=== PATIENT | female | born 1975 | race Asian ===

== ENCOUNTER 2021-12-20 17:55 | Observation (INO) | payer OTHER, MEDICAID, SELFPAY ==
[2021-12-20 18:07] VITALS: BP 138/82; PULSE 88; RESP 18; TEMP 36.6; O2SAT 100
--- NOTE | 2021-12-20 18:09 | DI.RAD.S_ITS ---
PROCEDURE: XR CHEST 1V INDICATIONS: chest pain TECHNIQUE: One view of the chest was acquired. COMPARISON: None. FINDINGS: Surgical changes and devices: Postsurgical changes are partially visualized in the lower cervical spine. Lungs and pleura: Lungs are clear without acute consolidation. There is a nodular opacity compatible with a nipple shadow projecting over the left lung base. No pleural effusions or pneumothorax. Mediastinum: Mediastinal contours appear normal. Heart size is normal. Bones and chest wall: No suspicious bony lesions. Overlying soft tissues appear unremarkable. IMPRESSION: 1. No acute cardiopulmonary disease. Dictated by: Ganesh Gutierrez M.D. on 12/20/2021 at 18:46 Approved by: Ganesh Gutierrez M.D. on 12/20/2021 at 18:47
[2021-12-20 18:30] LABS: Add Manual Diff / Slide Review NO; Basophils Absolute Auto 100 /uL (0-100); Basophils Percent Auto 0.8 % (0-2); Eosinophils Absolute Auto 100 /uL (0-450); Eosinophils Percent Auto 1.1 % (2-4); Hematocrit 43.4 % (36-46); Hemoglobin 14.8 g/dL (12.0-16.0); Lymphocytes Absolute Auto 1200 /uL (1100-4500); Lymphocytes Percent Auto 16.2 % (25-40); Mean Corpuscular HGB Conc 34.2 % (30-36); Mean Corpuscular Hemoglobin 31.4 PG (26-34); Mean Corpuscular Volume 91.7 fL (80-100); Monocytes Absolute Auto 500 /uL (0-900); Monocytes Percent Auto 7.6 % (3-14); Neutrophils Absolute Auto 5300 /uL (1500-7000); Neutrophils Percent Auto 74.3 % (50-75); Platelet Count 289 X10^3/uL (150-400); Red Blood Cell Count 4.73 X10^6/uL (4.0-5.2); Red Cell Distribution Width 13.7 % (11.6-14.8); White Blood Cell Count 7.2 X10^3/uL (4.5-11.0)
[2021-12-20 18:36] LABS: Alanine Aminotransferase 11 IU/L (<35); Albumin 4.8 g/dL (3.5-5.0); Albumin Globulin Ratio 1.5 (1.0-2.8); Alkaline Phosphatase 46 U/L (38-126); Aspartate Aminotransferase 22 IU/L (14-36); BUN Creatinine Ratio 11.3 (6-22); Bilirubin Total 0.5 mg/dL (0.2-1.3); Blood Urea Nitrogen 14 mg/dL (7-17); Calcium 9.9 mg/dL (8.4-10.2); Carbon Dioxide 30 mmol/L (22-32); Chloride 104 mmol/L (98-107); Creatine Kinase 53 U/L (30-135); Estimated Glomerular Filt Rate 46.8 mL/min (>60); Globulin 3.1 g/dL (1.7-4.1); Glucose 153 mg/dL (70-100); HEMOLYSIS < 15 (0-50); Lipase 90 U/L (23-300); Magnesium 2.2 mg/dL (1.6-2.3); Potassium 3.8 mmol/L (3.4-5.1); Sodium 140 mmol/L (137-145); Total Protein 7.9 g/dL (6.3-8.2)
[2021-12-20 18:50] LABS: Troponin I < 0.012 ng/mL (0.01-0.034)
--- NOTE | 2021-12-20 19:49 | DI.CT.S_ITS ---
PROCEDURE: CT ANGIO CHEST PE PROTOCOL INDICATIONS: chest pain TECHNIQUE: After the administration of intravenous contrast, 2 mm thick sections acquired from the pulmonary apices to the posterior costophrenic angles. 3-dimensional maximum intensity projection (MIP) coronal and sagittal reformats were then acquired through the thorax. For radiation dose reduction, the following was used: automated exposure control, adjustment of mA and/or kV according to patient size. COMPARISON: None. FINDINGS: Image quality: Excellent. Pulmonary arteries: Pulmonary arteries are normal in size, and demonstrate no intraluminal filling defects to suggest central pulmonary embolism. Lungs and pleura: Lungs are clear. No pleural effusions or pneumothorax. Central and peripheral airways are patent. Mediastinum: Heart size is normal, without pericardial effusion. No mediastinal or hilar adenopathy. Thoracic aorta is normal in caliber and enhancement. Esophagus is normal in caliber, without hiatal hernia. Bones and chest wall: No suspicious bony lesions. Ribs and thoracic spine appear intact throughout. Thyroid gland uniform attenuation. No axillary or supraclavicular adenopathy. Abdomen: Visualized upper abdominal solid organs appear normal in the early arterial phase of enhancement. IMPRESSION: No acute finding in the chest. Dictated by: Colin Edward M.D. on 12/20/2021 at 21:17 Approved by: Colin Edward M.D. on 12/20/2021 at 21:19
--- NOTE | 2021-12-20 19:51 | DI.CT.S_ITS ---
PROCEDURE: CT ANGIO HEAD AND NECK INDICATIONS: Headache TECHNIQUE: Pre-contrast 4.5 mm thick sections acquired from the foramen magnum to the vertex. After the administration of intravenous contrast, 1 mm thick sections acquired from the aortic arch through the [place]. Post-contrast 4.5 mm thick sections then re-acquired from the foramen magnum to the vertex. 3-dimensional oihiudt-ikecswzwv-aomnmqsvkb (MIP) and/or volume rendering reformats were acquired of the central intracranial vasculature and neck separately. COMPARISON: None. FINDINGS: BRAIN: CSF spaces: Ventricles are normal in size and shape. Basal cisterns are patent. No extra-axial fluid collections. Brain: No midline shift. No intracranial bleeds or masses. Sanchez-white matter interface appears intact. Skull and face: Calvarium and facial bones appear intact, without suspicious lesions. Orbits appear normal. Sinuses: Sinuses and mastoids are clear. HEAD CT ANGIOGRAPHY: Anterior circulation: Intracranial internal carotid arteries are normal in size and flow. The flow within the paired anterior cerebral arteries is normal and symmetric. The flow within the middle cerebral arteries is normal and symmetric. The anterior communicating artery is seen. No aneurysms are seen. Posterior circulation: Visualized portions of the vertebral arteries demonstrate normal caliber, and join to form a normal appearing basilar artery. Flow within the posterior cerebral arteries is normal and symmetric. No aneurysms are seen. NECK CT ANGIOGRAPHY: Carotid system: The great vessels demonstrate a conventional anatomy as they arise from the aortic arch. The origins of the common carotid arteries appear patent. The common carotid arteries demonstrate normal caliber and courses. The bifurcation regions are both widely patent. The internal carotid arteries demonstrate normal calibers and courses. Posterior circulation: The origins of the vertebral arteries both appear widely patent. The more superior extracranial portions of both vertebral arteries also demonstrate normal courses and calibers. They join to form a normal appearing basilar artery. Soft tissues: Visualized neck soft tissues demonstrate no suspicious abnormalities. Bones: No suspicious bony lesions. Visualized cervical spine appears normally aligned. IMPRESSION: No acute intracranial abnormality. No intracranial aneurysm or vascular malformation. No hemodynamically significant stenosis of the major intracranial or extracranial arterial vasculature. Any quantitative measurements of stenosis were performed using NASCET criteria. Dictated by: Colin Edward M.D. on 12/20/2021 at 21:24 Approved by: Colin Edward M.D. on 12/20/2021 at 21:30
--- NOTE | 2021-12-20 19:51 | ED_ITS ---
HPI - Chest Pain General Chief Complaint: Chest Pain Stated Complaint: Massive Headache,SOB,Tingling Face,Pain Left Arm Time Seen by Provider: 12/20/21 18:48 Source: patient Mode of arrival: Ambulatory History of Present Illness HPI narrative: Patient here with multiple complaints. Patient complains of bilateral facial numbness. This started on December 10 of this year. On December 09 the day before, patient had dental procedure and had submental Novocain bilateral blocks at the dentist's office. She did not proceed with the procedure. She left the office. The next day she had bilateral facial numbness and continues have this numbness. Patient also complains of headache and substernal chest discomfort radiating to left arm. It is not reproducible. Family history of brain aneurysms. Patient does complain of headache as well. Currently no chest pain but does have left arm discomfort. No numbness or tingling weakness syncope or diaphoresis. No exertional chest pain. Denies any headache at this time. No back pain. No abdominal pain. Patient states she is going through a divorce, she filed for divorce but she states she is not stressed but is actually feeling better about filing for divorce. His eye had ongoing this chest pain since September last year. Has worsened with increased frequency. Father had quadruple bypass at age 4646 years old. Patient is not COVID vaccinated. She does smoke cigarettes. Related Data Home Medications Medication Instructions Recorded Confirmed aspirin 81 mg chewable tablet 81 mg PO DAILY 12/21/21 12/21/21 dolutegravir 50 mg tablet (Tivicay) 50 mg PO DAILY 12/21/21 12/21/21 emtricitabine 200 mg-tenofovir 1 tab PO DAILY 12/21/21 12/21/21 alafenamide fumarate 25 mg tablet (Descovy) Allergies Allergy/AdvReac Type Severity Reaction Status Date / Time Iodinated Contrast Media Allergy Verified 12/20/21 21:40 Review of Systems Review of Systems Narrative: GENERAL: Denies chills, fatigue, malaise, fever, sweats. HEENT: Denies sinus pain, ear pain, sore throat RESPIRATORY: Denies dyspnea, cough CARDIOVASCULAR: Positive for chest pain, palpitations GASTROINTESTINAL: Denies nausea, vomiting, abdominal pain : Denies dysuria, frequency, hematuria MUSCULOSKELETAL: denies muscle or bony pain SKIN: Denies rash, skin lesions NEUROLOGIC: Denies weakness, positive for facial numbness, positive for headache ROS Unobtainable: All systems reviewed & are unremarkable except as noted in HPI and below Patient History Family History (Updated 12/21/21 @ 01:46 by VICTOR M Swanson) Father Family history of CABG Mother Rheumatoid arthritis Social History household members: family Smoking Status: Current every day smoker alcohol intake: never Exam Narrative Exam Narrative: GENERAL: in no distress, not toxic not dyspneic HEAD: Normocephalic. EYES: Pupils equal round No scleral icterus. ENT: Mucous membranes moist. NECK: Trachea midline. CARDIOVASCULAR: Regular rate and rhythm without murmurs RESPIRATORY: Clear to auscultation. Breath sounds equal bilaterally. No wheezes, rales, or rhonchi. GASTROINTESTINAL: Abdomen soft, non-tender EXTREMITIES: No gross deformities. BACK: No flank tenderness. NEURO: AOx4. Clear speech no facial droop light touch intact to bilateral face hands with strong equal operations lead. Patient however complains of numbness to bilateral face. No facial droop. Steady self gait in hallway to the bathroom. No ataxia. SKIN: Warm and dry PSYCH: Not anxious, is cooperative Initial Vital Signs Initial Vital Signs: Vital Signs Temperature 97.9 F 12/20/21 18:07 Pulse Rate 88 12/20/21 18:07 Respiratory Rate 18 12/20/21 18:07 Blood Pressure 138/82 12/20/21 18:07 Pulse Oximetry 100 12/20/21 18:07 Course Course Course Narrative: No new issues during course stay other than allergic reaction to CT contrast dye. No respiratory complaints. Improving with Benadryl and Solu-Medrol Orders Ordered: ED Orders 12/20/21 18:09 XR chest 1V Stat EKG-12 Lead Stat 12/20/21 18:20 Complete Blood Count AUTO DIFF Stat Comprehensive Metabolic Panel Stat Lipase Stat Magnesium Stat Troponin & CK Cardiac Panel Stat 12/20/21 19:49 CT angio chest PE protocol Stat 12/20/21 19:51 CT angio head and neck Stat 12/20/21 19:55 Urine Drug Screen, Rapid Stat Acetaminophen (Acetaminophen 325 Mg Tablet) 650 mg PO Q6HR PRN PRN Reason: Fever/Mild Pain (1-3) Aspirin (Aspirin Ec 81 Mg Tablet) 81 mg PO DAILY [facility] Atorvastatin Calcium (Atorvastatin 20 Mg Tablet) 40 mg PO BEDTIME [facility] Enoxaparin Sodium (Enoxaparin 40 Mg/0.4 Ml Syringe) 40 mg SUBCUT DAILY [facility] Famotidine (Famotidine 20 Mg/2 Ml Vial) 20 mg IV NOW [facility] Last Admin: 12/20/21 21:06 Dose: 20 mg Documented by: JUJU Morphine Sulfate (Morphine 2 Mg/Ml Inj) 2 mg IV Q5MIN PRN PRN Reason: Chest Pain Naloxone HCl (Naloxone 0.4 Mg/Ml Vial) 0.2 mg IV Q2MIN PRN PRN Reason: Opiate Reversal Nicotine (Nicotine 14 Patch) 14 mg TOP DAILY [facility] Nitroglycerin (Nitroglycerin 0.4 Mg Sl Tab) 0.4 mg SL [id number] PRN PRN Reason: Chest Pain Ondansetron HCl (Ondansetron 4 Mg/2 Ml Inj) 4 mg IV Q8HR PRN PRN Reason: Nausea And Vomiting Discontinued Medications Diphenhydramine HCl (Diphenhydramine 50 Mg/Ml Vial) 25 mg IV NOW ONE Stop: 12/20/21 20:50 Last Admin: 12/20/21 20:53 Dose: 25 mg Documented by: JUJU Sodium Chloride (Normal Saline 0.9%) 500 mls @ 1,000 mls/hr IV BOLUS ONE Stop: 12/20/21 20:18 Last Admin: 12/20/21 21:03 Dose: Not Given Documented by: JUJU Sodium Chloride (Normal Saline 0.9%) 1,000 mls @ 1,000 mls/hr IV BOLUS ONE Stop: 12/20/21 21:48 Last Infusion: 12/20/21 22:09 Dose: 0 mls/hr Documented by: Admin: 12/20/21 20:53 Dose: 1,000 mls/hr Documented by: JUJU Methylprednisolone (Methylprednisolone 125 Mg/2 Ml Vial) 125 mg IV NOW ONE Stop: 12/20/21 20:50 Last Admin: 12/20/21 20:53 Dose: 125 mg Documented by: JUJU Nicotine (Nicotine 14 Patch) 14 mg TOP DAILY [facility] Reevaluation(s) Reevaluation #1: Reviewed results with patient. No chest pain at this time. Agrees for admit. No respiratory complaints after IV contrast. Only itching and periorbital edema which is improving. Time: 22:11 Consultations Consultation #1: Spoke with hospitalist, Demetria Sanchez, will admit patient Time: 22:20 Vital Signs Vital signs: Vital Signs - 8 hr 12/20/21 21:04 12/20/21 21:30 12/20/21 22:00 Pulse Rate 81 71 74 Blood Pressure 150/80 H 123/80 Pulse Oximetry 100 100 100 MDM - Chest Pain Differential Diagnosis Differential diagnosis: Likely stable angina, unstable angina pectoris, atypical chest pain, st elevation myocardial infarction and other (Aortic dissection/aneurysm/brain aneurysm/facial paresthesia secondary to iatrogenic/medication) Lab Data Result diagrams: 12/20/21 18:20 12/20/21 18:20 Labs: Lab Results 12/20/21 12/20/21 12/20/21 Range/Units 18:20 18:20 18:20 WBC 7.2 (4.5-11.0) X10^3/uL RBC 4.73 (4.0-5.2) X10^6/uL Hgb 14.8 (12.0-16.0) g/dL Hct 43.4 (36-46) % MCV 91.7 (80-100) fL MCH 31.4 (26-34) PG MCHC 34.2 (30-36) % RDW 13.7 (11.6-14.8) % Plt Count 289 (150-400) X10^3/uL Neut % (Auto) 74.3 (50-75) % Lymph % (Auto) 16.2 L (25-40) % [place] % (Auto) 7.6 (3-14) % Eos % (Auto) 1.1 L (2-4) % Baso % (Auto) 0.8 (0-2) % Neut # (Auto) 5300 (1985-7008) /uL Lymph # (Auto) 1200 (4623-5276) /uL [place]oving # (Auto) 500 (0-900) /uL Eos # (Auto) 100 (0-450) /uL Baso # (Auto) 100 (0-100) /uL Sodium 140 (137-145) mmol/L Potassium 3.8 (3.4-5.1) mmol/L Chloride 104 (98-107) mmol/L Carbon Dioxide 30 (22-32) mmol/L BUN 14 (7-17) mg/dL Creatinine 1.24 H (0.52-1.04) mg/dL Estimated GFR 46.8 L (>60) mL/min BUN/Creatinine Ratio 11.3 (6-22) Glucose 153 H (70-100) mg/dL Hemoglobin A1c 5.5 (4.0-6.0) % Calcium 9.9 (8.4-10.2) mg/dL Magnesium 2.2 (1.6-2.3) mg/dL Total Bilirubin 0.5 (0.2-1.3) mg/dL AST 22 (14-36) IU/L ALT 11 (<35) IU/L Alkaline Phosphatase 46 (38-126) U/L Total Creatine Kinase 53 (30-135) U/L CK-MB (CK-2) TNP CK-MB (CK-2) Rel Index TNP Troponin I < 0.012 (0.01-0.034) ng/mL Total Protein 7.9 (6.3-8.2) g/dL Albumin 4.8 (3.5-5.0) g/dL Globulin 3.1 (1.7-4.1) g/dL Albumin/Globulin Ratio 1.5 (1.0-2.8) Lipase 90 (23-300) U/L U Opiates 300ng/mL cut (Negative) Ur Oxycodone Screen (Negative) Urine Methadone Screen (Negative) Ur Barbiturates Screen (Negative) U Tricyclic Antidepress (Negative) Ur Phencyclidine Scrn (Negative) Ur Amphetamines Screen (Negative) U Methamphetamines Scrn (Negative) Ur MDMA Scrn (Ecstasy) (Negative) U Benzodiazepines Scrn (Negative) Urine Cocaine Screen (Negative) U Marijuana (THC) Screen (Negative) 12/20/21 Range/Units 19:55 WBC (4.5-11.0) X10^3/uL RBC (4.0-5.2) X10^6/uL Hgb (12.0-16.0) g/dL Hct (36-46) % MCV (80-100) fL MCH (26-34) PG MCHC (30-36) % RDW (11.6-14.8) % Plt Count (150-400) X10^3/uL Neut % (Auto) (50-75) % Lymph % (Auto) (25-40) % Loving % (Auto) (3-14) % Eos % (Auto) (2-4) % Baso % (Auto) (0-2) % Neut # (Auto) (6686-2060) /uL Lymph # (Auto) (7415-7694) /uL Loving # (Auto) (0-900) /uL Eos # (Auto) (0-450) /uL Baso # (Auto) (0-100) /uL Sodium (137-145) mmol/L Potassium (3.4-5.1) mmol/L Chloride (98-107) mmol/L Carbon Dioxide (22-32) mmol/L BUN (7-17) mg/dL Creatinine (0.52-1.04) mg/dL Estimated GFR (>60) mL/min BUN/Creatinine Ratio (6-22) Glucose (70-100) mg/dL Hemoglobin A1c (4.0-6.0) % Calcium (8.4-10.2) mg/dL Magnesium (1.6-2.3) mg/dL Total Bilirubin (0.2-1.3) mg/dL AST (14-36) IU/L ALT (<35) IU/L Alkaline Phosphatase (38-126) U/L Total Creatine Kinase (30-135) U/L CK-MB (CK-2) CK-MB (CK-2) Rel Index Troponin I (0.01-0.034) ng/mL Total Protein (6.3-8.2) g/dL Albumin (3.5-5.0) g/dL Globulin (1.7-4.1) g/dL Albumin/Globulin Ratio (1.0-2.8) Lipase (23-300) U/L U Opiates 300ng/mL cut Negative (Negative) Ur Oxycodone Screen Negative (Negative) Urine Methadone Screen Negative (Negative) Ur Barbiturates Screen Negative (Negative) U Tricyclic Antidepress Negative (Negative) Ur Phencyclidine Scrn Negative (Negative) Ur Amphetamines Screen Negative (Negative) U Methamphetamines Scrn Negative (Negative) Ur MDMA Scrn (Ecstasy) Negative (Negative) U Benzodiazepines Scrn Negative (Negative) Urine Cocaine Screen Negative (Negative) U Marijuana (THC) Screen Positive H (Negative) Imaging Data Chest x-ray: Radiologist's Impression: [address] [address] XRay Report Signed Patient: Rosangela Jonas MR#: [id number] : 1975 Acct:[id number] Age/Sex: 46 / F Date of Service: 12/20/21 Loc: ED Accession Number: [id number] ?? Procedure: XR chest 1V Ordering Provider: Bud Livingston MD PROCEDURE:? XR CHEST 1V ? INDICATIONS:? chest pain ? TECHNIQUE:? One view of the chest was acquired.? ? COMPARISON:? None. ? FINDINGS:? ? Surgical changes and devices:? Postsurgical changes are partially visualized in the lower cervical spine.? ? Lungs and pleura:? Lungs are clear without acute consolidation.? There is a nodular opacity compatible with a nipple shadow projecting over the left lung base.? No pleural effusions or pneumothorax.? ? Mediastinum:? Mediastinal contours appear normal.? Heart size is normal.? ? Bones and chest wall:? No suspicious bony lesions.? Overlying soft tissues appear unremarkable.? ? IMPRESSION:? ? 1.? No acute cardiopulmonary disease. ? ? ? Dictated by: Ganesh Gutierrez M.D. on 12/20/2021 at 18:46 ? ? Approved by: Ganesh Gutierrez M.D. on 12/20/2021 at 18:47 ? CT scan - chest: Radiologist's Impression: [address] [address] [address] Scan Report Signed Patient: Rosangela Jonas MR#: [id number] : 1975 Acct:[id number] Age/Sex: 46 / F Date of Service: 12/20/21 Loc: ED Accession Number: [id number] ?? Procedure: CT angio chest PE protocol Ordering Provider: Bud Livingston MD PROCEDURE:? CT ANGIO CHEST PE PROTOCOL ? INDICATIONS:? chest pain ? TECHNIQUE:? After the administration of intravenous contrast, 2 mm thick sections acquired from the pulmonary apices to the posterior costophrenic angles.? 3-dimensional maximum intensity projection (MIP) coronal and sagittal reformats were then acquired through the thorax.? For radiation dose reduction, the following was used:? automated exposure control, adjustment of mA and/or kV according to patient size.? ? COMPARISON:? None. ? FINDINGS:? Image quality:? Excellent.? ? Pulmonary arteries:? Pulmonary arteries are normal in size, and demonstrate no intraluminal filling defects to suggest central pulmonary embolism.? ? Lungs and pleura:? Lungs are clear.? No pleural effusions or pneumothorax.? Central and peripheral airways are patent.? ? Mediastinum:? Heart size is normal, without pericardial effusion.? No mediastinal or hilar adenopathy.? Thoracic aorta is normal in caliber and enhancement.? Esophagus is normal in caliber, without hiatal hernia.? ? Bones and chest wall:? No suspicious bony lesions.? Ribs and thoracic spine appear intact throughout.? Thyroid gland uniform attenuation.? No axillary or supraclavicular adenopathy.? ? Abdomen:? Visualized upper abdominal solid organs appear normal in the early arterial phase of enhancement.? ? IMPRESSION:? No acute finding in the chest. ? ? Dictated by: Colin Edward M.D. on 12/20/2021 at 21:17 ? ? Approved by: Colin Edward M.D. on 12/20/2021 at 21:19 ? CTA - brain/neck: Radiologist's Impression: [place] [address] CT Scan Report Signed Patient: Rosangela Jonas MR#: [id number] : 1975 Acct:[id number] Age/Sex: 46 / F Date of Service: 12/20/21 Loc: ED Accession Number: [id number] ?? Procedure: CT angio head and neck Ordering Provider: Bud Livingston MD PROCEDURE:? CT ANGIO HEAD AND NECK ? INDICATIONS:? Headache ? TECHNIQUE:? Pre-contrast 4.5 mm thick sections acquired from the foramen magnum to the vertex.? After the administration of intravenous contrast, 1 mm thick sections acquired from the aortic arch through the [place].? Post-contrast 4.5 mm thick sections then re- acquired from the foramen magnum to the vertex.? 3-dimensional maximum-intensity- projection (MIP) and/or volume rendering reformats were acquired of the central intracranial vasculature and neck separately. ? COMPARISON:? None. ? FINDINGS:? BRAIN:? CSF spaces:? Ventricles are normal in size and shape.? Basal cisterns are patent.? No extra-axial fluid collections.? ? Brain:? No midline shift.? No intracranial bleeds or masses.? Sanchez-white matter interface appears intact.? ? Skull and face:? Calvarium and facial bones appear intact, without suspicious lesions.? Orbits appear normal.? ? Sinuses:? Sinuses and mastoids are clear.? ? HEAD CT ANGIOGRAPHY:? Anterior circulation:? Intracranial internal carotid arteries are normal in size and flow.? The flow within the paired anterior cerebral arteries is normal and symmetric.? The flow within the middle cerebral arteries is normal and symmetric.? The anterior communicating artery is seen.? No aneurysms are seen.? ? Posterior circulation:? Visualized portions of the vertebral arteries demonstrate normal caliber, and join to form a normal appearing basilar artery.? Flow within the posterior cerebral arteries is normal and symmetric.? No aneurysms are seen.? ? NECK CT ANGIOGRAPHY:? Carotid system:? The great vessels demonstrate a conventional anatomy as they arise from the aortic arch.? The origins of the common carotid arteries appear patent.? The common carotid arteries demonstrate normal caliber and courses.? The bifurcation regions are both widely patent.? The internal carotid arteries demonstrate normal calibers and courses.? ? Posterior circulation:? The origins of the vertebral arteries both appear widely patent.? The more superior extracranial portions of both vertebral arteries also demonstrate normal courses and calibers.? They join to form a normal appearing basilar artery.? ? Soft tissues:? Visualized neck soft tissues demonstrate no suspicious abnormalities.? ? Bones:? No suspicious bony lesions.? Visualized cervical spine appears normally aligned.? IMPRESSION:? No acute intracranial abnormality.? No intracranial aneurysm or vascular malformation.? No hemodynamically significant stenosis of the major intracranial or extracranial arterial vasculature. ? Any quantitative measurements of stenosis were performed using NASCET criteria.? ? ? Dictated by: Colin Edward M.D. on 12/20/2021 at 21:24 ? ? Approved by: Colin Edward M.D. on 12/20/2021 at 21:30 ? ECG Data Interpretation: Sinus rhythm, rate 93. No ST elevation or depression MDM Narrative Medical decision making narrative: Appropriate for admission. Patient has risk factors including early coronary disease with father with quadruple bypass. Patient does smoke cigarettes. Cur rently chest pain-free. Agrees for admission. Discharge Plan Departure Patient Disposition: Admitted as Observation Clinical Impression: Chest pain Admit Date/Time: 12/20/21 22:26 Admit Provider: Demetria Sanchez
[2021-12-20 20:04] LABS: UR Morphine/Opiate cutoff 300 Negative (Negative); Ur Creatinine Normal (Normal); Ur Specific Gravity Normal (Normal); Urine Amphetamines Negative (Negative); Urine Barbiturates Negative (Negative); Urine Benzodiazepines Negative (Negative); Urine Cocaine Negative (Negative); Urine MDMA Negative (Negative); Urine Methadone Negative (Negative); Urine Methamphetamines Negative (Negative); Urine Oxycodone Negative (Negative); Urine Phencyclidine Negative (Negative); Urine Tetrahydrocannabinol Positive (Negative); Urine Tricyclic Antidepressant Negative (Negative); Urine pH Normal (Normal)
[2021-12-20] MEDS: SODIUM CHLORIDE 0.9% 1,000 ML 1000 ML IV (20:53)
[2021-12-20] MEDS: methylPREDNISolone 125 MG/2 ML VIAL IV (20:53)
[2021-12-20] MEDS: diphenhydrAMINE 50 MG/ML VIAL 25 MG IV (20:53)
[2021-12-20 21:04] VITALS: BP 150/80; PULSE 81; O2SAT 100
[2021-12-20] MEDS: FAMOTIDINE 20 MG/2 ML VIAL IV (21:06)
--- NOTE | 2021-12-20 21:16 | PC.NURSE ---
patient started with eye swelling and upper lip swelling after ct scan with IV contrast. she denies any tongue swelling, shortness of breath or chest pain. provider notified and solumedrol, benadryl and pepcid ordered. patient maintaining airway and oxygen saturation 100% on room air. charge nurse and provider aware.
[2021-12-20 21:30] VITALS: BP 123/80; PULSE 71; O2SAT 100
[2021-12-20 22:00] VITALS: PULSE 74; O2SAT 100
[2021-12-20 22:48] LABS: COVID19 -Nasal RAPID Negative (Negative)
[2021-12-20 23:00] VITALS: BP 133/70; PULSE 71; RESP 18; TEMP 37.1; O2SAT 100
--- NOTE | 2021-12-20 23:00 | DI.ECHO.S_ITS ---
[facility]---------+ [facility] +---------+ : : [address] : : : : [id number] : : : : Phone: [phone]+ Echocardiogram Report + + :Name: AYANNA CROOK Study Date: 12/21/2021 Height: 60.5 in: :[facility] ReadingLocation: Weight: 113 lb : : Gender: Female BSA: 1.5 m2 : :: 1975 Age: 46 yrs BP: 123/80 mmHg: :Reason For Study: CHEST PAIN : :Ordering Physician: Jose MACHUCAformed By: Yenny Salcedo : :Referring: AYAAN MACHUCA : + + Interpretation Summary 1) Normal left ventricular thickness, size, wall motion, and systolic function (EF 55-60%). 2) Normal right ventricular size and function. 3) No significant valvular abnormalities. 4) No prior Echo available for comparison. Procedure: A two-dimensional transthoracic echocardiogram with color flow and Doppler was performed. The study quality was technically adequate. There is no prior echocardiogram noted for this patient. The patient was in sinus rhythm with heart rates between 69-83 bpm during the exam. Left Ventricle: The left ventricle is normal in size and wall thickness. The ejection fraction is estimated to be 55-60%. Left ventricular systolic function appears normal without focal wall motion abnormalities. Right Ventricle: The right ventricle is normal in size and function. Atria: The left atrial size is normal. Right atrial size is normal. There is no Doppler evidence for an interatrial shunt. Mitral Valve: There is a flat closure plane of the the mitral valve leaflets. There is trace mitral regurgitation. Aortic Valve: The aortic valve is trileaflet. The aortic valve opens well. There is no aortic valve stenosis. No aortic regurgitation is present. Tricuspid Valve: The tricuspid valve is normal in structure and function. There is trace tricuspid regurgitation. Pulmonary artery pressures cannot be estimated because of the lack of a measurable TR jet velocity. Pulmonic Valve: The pulmonic valve leaflets are thin and pliable; valve motion is normal. There is no pulmonic valvular regurgitation. Great Vessels: The aortic root is normal size. The ascending aorta could not be visualized. The IVC is dilated (diameter is greater than 2.1 cm) yet it collapses greater than 50% with a sniff. This suggests a right atrial pressure of 8 mm Hg. Pericardium/ Pleura There is no pericardial effusion. There is no pleural effusion. MMode/2D Measurements & Calculations LVIDd: 4.6 cm LVOT diam: 1.9 cm LVIDs: 3.0 cm Ao root diam: 2.7 cm FS: 35.2 % Ao Arch Diam (Prox Trans): 1.8 cm IVSd: 0.51 cm LVPWd: 0.57 cm LV coates. diameter/BSA (cm/m^2): 3.1 LV sys. diameter/BSA (cm/m^2): 2.0 LA A2 area: 12.2 cm2 RA long axis: 3.9 cm LA A4 area: 16.0 cm2 RA area: 12.1 cm2 LA length (vol): 4.2 cm RA vol: 32.5 ml LA vol: 39.7 ml RA : 22.0 ml/m2 LA vol index: 26.9 ml/m2 IVC diam: 2.1 cm RVD1 (basal): 2.3 cm TAPSE: 2.5 cm Doppler Measurements & Calculations Ao V2 max: 128.3 cm/sec LVOT Max Steven: 67.1 cm/sec Ao V2 mean: 84.2 cm/sec LV V1 max P.8 mmHg Ao max P.6 mmHg LV V1 VTI: 14.0 cm Ao mean P.3 mmHg MAIRA(I,D): 1.5 cm2 Ao V2 VTI: 27.9 cm MAIRA(V,D): 1.5 cm2 sev ratio: 0.50 MAIRA indexed to BSA (cm^2/m^2): 1.0 MV E max steven: 96.1 cm/sec PA V2 max: 83.2 cm/sec MV A max steven: 79.0 cm/sec PA V2 mean: 54.1 cm/sec MV E/A: 1.2 PA mean P.4 mmHg Med Peak E' Steven: 10.7 cm/sec PA pr(Accel): 22.5 mmHg E/E' med: 9.0 Lat Peak E' Steven: 14.9 cm/sec E/E' lat: 6.5 E/e' average: 7.7 MV dec time: 0.22 sec SV([facility]): 41.3 ml Reading Physician:09:25 AM
[2021-12-20 23:03] VITALS: BMI 21.7
--- NOTE | 2021-12-20 23:04 | P.HP_ITS ---
History of Present Illness History of Present Illness Date Patient Seen: 12/20/21 Time Patient Seen: 23:05 Chief complaint: Massive Headache,SOB,Tingling Face,Pain Left Arm Narrative: Rosangela Jonas is a 46-year-old female with problems with vision that has been going on for the past 2-3 weeks starting on December 09 and numbness in her face starting about that same time. She also states that she has left-sided chest pain, short pain in her left biceps and has had the sweats. She endorses having fibromyalgia and multiple neck and back surgeries and a surgery that involved a labral tear. She denies shortness of breath, nausea vomiting, abdominal pain, diarrhea or constipation. Patient is in the process of transferring her medical records from [place] to [facility] and has seen specialists in the [place] area. Her history is notable for father having a 4 way bypass at the age of 50. She states that her mother has a rare condition called signature recognition myopathy and that she and her mother both have rheumatoid arthritis. Head CT, chest and neck CTA a were both negative for any acute findings. Patient is afebrile, blood pressure 133/70, heart rate 71, respiratory rate 18, oxygen saturation 91% on room air she weighs 52.2 kg with a BMI of 21.7. CBC is unremarkable, she has an elevated creatinine 0 of 1.24 and it is unknown is this is her baseline, she has a EGFR 46.8, glucose 153, hemoglobin A1c is negative for diabetes and her drug screen was positive for THC. COVID-19 PCR is negative. Patient History Comment: Patient has had multiple cervical fusions in 2005, 2010 and 2015, with instrumentation that was supposed to be removed and have not. Lumbar laminectomy 2000 Repair of left shoulder labral tear Family & Social History Family History (Updated 12/21/21 @ 01:46 by VICTOR M Swanson) Father Family history of CABG Mother Rheumatoid arthritis Social History: Applying for disability Tobacco & Substance use: Smokes 1/2 pack per day Smokes marijuana Meds Home Medications and Allergies Home Medications Medication Instructions Recorded Confirmed Type aspirin 81 mg chewable tablet 81 mg PO DAILY 12/21/21 12/21/21 History dolutegravir 50 mg tablet (Tivicay) 50 mg PO DAILY 12/21/21 12/21/21 History emtricitabine 200 mg-tenofovir 1 tab PO 12/21/21 History alafenamide fumarate 25 mg tablet (Descovy) Allergies Allergy/AdvReac Type Severity Reaction Status Date / Time Iodinated Contrast Media Allergy Verified 12/20/21 21:40 Review of Systems Review of Systems ROS: Yes All systems reviewed with the patient and are negative except as otherwise documented Exam Vital Signs (past 8 hours): - 12/20/21 18:07 12/20/21 21:04 12/20/21 21:30 Temperature 97.9 F Pulse Rate 88 81 71 Respiratory Rate 18 Blood Pressure 138/82 150/80 H 123/80 Pulse Oximetry 100 100 100 12/20/21 22:00 Temperature Pulse Rate 74 Respiratory Rate Blood Pressure Pulse Oximetry 100 Oxygen Delivery Method Room Air Narrative Exam Narrative: Gen: Alert, oriented, thin 46 y.o. -[place] female, NAD HEENT: normocephalic, atraumatic, conjunctiva clear, sclera non-icteric, oral mucosa pink and moist Neck: supple, full ROM, no JVD, trachea is midline Resp: Lungs CTA, non-labored breathing CV: RRR, no murmur or rubs Abd: soft, non-tender, normoactive BTs Skin: no lesions or rashes, dry and intact Neuro: Alert and oriented X 4 w/no focal deficits. Speech clear and coherent. Extremities: moves all 4 extremities, is ambulatory, negative Angle?s sign Psyche: pressured speech, normal mood and affect. Objective Labs Result Diagrams: 12/20/21 18:20 12/20/21 18:20 Labs: Laboratory Results - last 24 hr 12/20/21 12/20/21 12/20/21 18:20 18:20 19:55 WBC 7.2 RBC 4.73 Hgb 14.8 Hct 43.4 MCV 91.7 MCH 31.4 MCHC 34.2 RDW 13.7 Plt Count 289 Neut % (Auto) 74.3 Lymph % (Auto) 16.2 L Simpson % (Auto) 7.6 Eos % (Auto) 1.1 L Baso % (Auto) 0.8 Neut # (Auto) 5300 Lymph # (Auto) 1200 Simpson # (Auto) 500 Eos # (Auto) 100 Baso # (Auto) 100 Sodium 140 Potassium 3.8 Chloride 104 Carbon Dioxide 30 BUN 14 Creatinine 1.24 H Estimated GFR 46.8 L BUN/Creatinine Ratio 11.3 Glucose 153 H Calcium 9.9 Magnesium 2.2 Total Bilirubin 0.5 AST 22 ALT 11 Alkaline Phosphatase 46 Total Creatine Kinase 53 CK-MB (CK-2) TNP CK-MB (CK-2) Rel Index TNP Troponin I < 0.012 Total Protein 7.9 Albumin 4.8 Globulin 3.1 Albumin/Globulin Ratio 1.5 Lipase 90 U Opiates 300ng/mL cut Negative Ur Oxycodone Screen Negative Urine Methadone Screen Negative Ur Barbiturates Screen Negative U Tricyclic Antidepress Negative Ur Phencyclidine Scrn Negative Ur Amphetamines Screen Negative U Methamphetamines Scrn Negative Ur MDMA Scrn (Ecstasy) Negative U Benzodiazepines Scrn Negative Urine Cocaine Screen Negative U Marijuana (THC) Screen Positive H SARS-CoV-2 (PCR) 12/20/21 22:29 WBC RBC Hgb Hct MCV MCH MCHC RDW Plt Count Neut % (Auto) Lymph % (Auto) Simpson % (Auto) Eos % (Auto) Baso % (Auto) Neut # (Auto) Lymph # (Auto) Simpson # (Auto) Eos # (Auto) Baso # (Auto) Sodium Potassium Chloride Carbon Dioxide BUN Creatinine Estimated GFR BUN/Creatinine Ratio Glucose Calcium Magnesium Total Bilirubin AST ALT Alkaline Phosphatase Total Creatine Kinase CK-MB (CK-2) CK-MB (CK-2) Rel Index Troponin I Total Protein Albumin Globulin Albumin/Globulin Ratio Lipase U Opiates 300ng/mL cut Ur Oxycodone Screen Urine Methadone Screen Ur Barbiturates Screen U Tricyclic Antidepress Ur Phencyclidine Scrn Ur Amphetamines Screen U Methamphetamines Scrn Ur MDMA Scrn (Ecstasy) U Benzodiazepines Scrn Urine Cocaine Screen U Marijuana (THC) Screen SARS-CoV-2 (PCR) Negative Assessment & Plan Assessment & Plan narrative: Rosangela Jonas is placed into observation for further evaluation and ACS ruleout. 1. Chest pain r/o ACS, acute, present on admission * Echo in am * Pharmacological stress test * Start ASA 81 mg in the am * Trend troponin X 4, all were negative 2. Impaired renal function * Creatinine is elevated at 1.24 with an eGFR of 46.8 * Recheck in the am. * Patient takes HIV antiviral medications dolutegravir and emtricitabine- tenfovir alefen which may cause renal impairment. 3. Hypertension, currently normotensive * Start low dose beta nicolas after stress test 3. Risk stratification * Lipid panel, pending am labs * Start/continue atorvastatin 40 mg po at bedtime * Fasting lipid panel scheduled for 0500 labs * A1c 5.5% VTE Prophylaxis: Wells risk score 0 Enoxaparin 40 mg subQ once daily Bilateral SCDs Patient is placed into observation as her stay is not expected to exceed 2 midnights. FEN: IV fluids: saline lock, diet: heart healthy, labs: CBC, C/BMP, liver enzymes, Mag Consultants None Dispo: probable discharge to home Code status: Full code as discussed with the patient who identifies her father, Timur Clarke as her surrogate and POA. [X] I have utilized all available immediate resources to obtain, update, or review of the patient's current medications COVID-19 COVID-19 status: Negative Result date/Date tested (Pos, Neg/Pending): 12/20/21 Quality VTE Deep Vein Thrombosis/Pulmonary Embolism Present on Admission: No MIPS - Admit I confirm the patient?s Advance Care Plan is present, Code status is documented, Surrogate decision maker is in patient?s record [If Yes, STOP here]: Yes MIPS - DC The patient has current or prior documentation of left ventricular ejection fraction (LVEF) less than 40%, or moderate or severely depressed left ventricular systolic function.: No
[2021-12-20 23:25] LABS: Hemoglobin A1C% w Est Avg Glu 5.5 % (4.0-6.0)
[2021-12-20 23:52] LABS: Troponin I < 0.012 ng/mL (0.01-0.034)
--- NOTE | 2021-12-21 02:32 | PC.NURSE ---
Pt was admitted tonight due to chest pain and strong family cardiac history. Pt is alert and oriented. No chest pain since she has been admitted.
[2021-12-21] MEDS: NICOTINE 14 PATCH 14 MG TOP (02:54)
[2021-12-21] MEDS: ACETAMINOPHEN 325 MG TABLET 650 MG PO ×2 (02:55→15:23)
[2021-12-21] MEDS: ATORVASTATIN 20 MG TABLET 40 MG PO (02:55)
[2021-12-21 03:31] VITALS: BP 122/73; PULSE 74; RESP 18; TEMP 36.6; O2SAT 100
[2021-12-21 06:33] LABS: Add Manual Diff / Slide Review NO; Basophils Absolute Auto 0 /uL (0-100); Basophils Percent Auto 0.3 % (0-2); Eosinophils Absolute Auto 0 /uL (0-450); Hematocrit 40.2 % (36-46); Hemoglobin 13.6 g/dL (12.0-16.0); Lymphocytes Absolute Auto 600 /uL (1100-4500); Lymphocytes Percent Auto 5.7 % (25-40); Mean Corpuscular HGB Conc 33.8 % (30-36); Mean Corpuscular Volume 91.8 fL (80-100); Monocytes Absolute Auto 0 /uL (0-900); Monocytes Percent Auto 0.4 % (3-14); Neutrophils Absolute Auto 9200 /uL (1500-7000); Neutrophils Percent Auto 93.6 % (50-75); Platelet Count 292 X10^3/uL (150-400); Red Blood Cell Count 4.38 X10^6/uL (4.0-5.2); Red Cell Distribution Width 13.7 % (11.6-14.8); White Blood Cell Count 9.8 X10^3/uL (4.5-11.0)
[2021-12-21 06:47] LABS: BUN Creatinine Ratio 20.9 (6-22); Blood Urea Nitrogen 18 mg/dL (7-17); Calcium 9.6 mg/dL (8.4-10.2); Carbon Dioxide 26 mmol/L (22-32); Chloride 109 mmol/L (98-107); Cholesterol 163 mg/dL (140-199); Estimated Glomerular Filt Rate > 60.0 mL/min (>60); Glucose 148 mg/dL (70-100); HDL Cholesterol 45 mg/dL (40-60); HEMOLYSIS < 15 (0-50); LDL Cholesterol Calculated 109 mg/dL (<100); Magnesium 2.1 mg/dL (1.6-2.3); Potassium 4.3 mmol/L (3.4-5.1); Sodium 138 mmol/L (137-145); Triglycerides 47 mg/dL (35-150)
[2021-12-21] MEDS: diphenhydrAMINE 25 MG TABLET PO (06:56)
[2021-12-21 07:27] LABS: Thyroid Stimulating Hormone 0.293 uIU/mL (0.47-4.68)
[2021-12-21 08:40] LABS: Troponin I < 0.012 ng/mL (0.01-0.034)
[2021-12-21 08:43] VITALS: BP 114/66; PULSE 78; RESP 18; TEMP 37; O2SAT 98
[2021-12-21] MEDS: ASPIRIN EC 81 MG TABLET PO (09:12)
[2021-12-21] MEDS: ENOXAPARIN 40 MG/0.4 ML SYRINGE SUBCUT (09:12)
[2021-12-21 10:30] VITALS: O2SAT 95
[2021-12-21 12:00] VITALS: BP 129/80; PULSE 87; RESP 16; TEMP 36.7; O2SAT 100
--- NOTE | 2021-12-21 13:31 | PC.NURSE ---
1230 Pt off of floor to radiology for stress test.
--- NOTE | 2021-12-21 13:31 | PM.TREADMILL ---
Cardiac Stress Test Report Referral & Results Date Patient Seen: 12/21/21 Time Patient Seen: 13:32 Requesting provider: Demetria Sanchez Indication: Dyspnea Rest ECG: Sinus rhythm with incomplete RBBB Procedure Note: Standard Felipe protocol, 6:30, 6.5 METS Reduced exercise capacity, +21% Normal hemodynamic response to exercise 4/10 chest pressure 1:48 mins into recovery after lying down; chest pressure resolved with sitting up; no associated ST changes on ECG No significant ST changes at peak exercise; rare PVC Impression: Equivocal exercise nuclear stress test Nuclear images pending Please note: Actual ECG tracings can be found in the PACS system.
--- NOTE | 2021-12-21 14:29 | PM.DS.1 ---
History of Present Illness History of Present Illness Chief complaint: Massive Headache,SOB,Tingling Face,Pain Left Arm Narrative: Israel Sanchez: Rosangela Jonas is a 46-year-old female with problems with vision that has been going on for the past 2-3 weeks starting on December 09 and numbness in her face starting about that same time.? She also states that she has left-sided chest pain, short pain in her left biceps and has had the sweats.? She endorses having fibromyalgia and multiple neck and back surgeries and a surgery that involved a labral tear.? She denies shortness of breath, nausea vomiting, abdominal pain, diarrhea or constipation.? Patient is in the process of transferring her medical records from [place] to [facility] and has seen specialists in the [place] area.? Her history is notable for father having a 4 way bypass at the age of 50.? She states that her mother has a rare condition called signature recognition myopathy and that she and her mother both have rheumatoid arthritis. Head CT, chest and neck CTA a were both negative for any acute findings.? Patient is afebrile, blood pressure 133/70, heart rate 71, respiratory rate 18, oxygen saturation 91% on room air she weighs 52.2 kg with a BMI of 21.7.? CBC is unremarkable, she has an elevated creatinine 0 of 1.24 and it is unknown is this is her baseline, she has a EGFR 46.8, glucose 153, hemoglobin A1c is negative for diabetes and her drug screen was positive for THC.? COVID-19 PCR is negative. Discharge Providers Provider Date of admission: 12/20/21 22:26 Discharge Date: 12/21/21 Discharge provider: Darinel Hare MD Summary Hospital Course Discharge Diagnosis: 1. Chest pain 2. MARTY 3. Htn 4. HIV 5. Chronic pain, possible fibromyalgia Hospital Course: Ms. Jonas came in with multiple symptoms including chest pain. Her chest pain did not sound classic for ACS. She had associated headache. She notes she has fibromyalgia. She has a family history of early CAD. She had a stress test that was a low risk study. She did have mild MARTY, due to dehydration, that resolved with IV fluids. She also has a history of brain aneurysm in family, and she wanted a rule out for aneursym, CT angio in ED confirmed no acute abnormality. Her chest discomfort resolved and she was discharged home. Exam Vital Signs (past 8 hours): Oxygen Delivery Method Room Air Oxygen Flow Rate 0 Narrative Exam Narrative: GEN: no acute distress CV: regular rate and rhythm PULM: clear bilaterally Objective Labs Result Diagrams: 12/21/21 06:18 12/21/21 06:18 PFSH Family History (Updated 12/21/21 @ 01:46 by VICTOR M Swanson) Father Family history of CABG Mother Rheumatoid arthritis Social History household members: family Smoking Status: Current every day smoker alcohol intake: never Discharge Plan Discharge Plan Patient Disposition: Home Provider Discharge Comment: Ms. Jonas was admitted with headache and chest pain. She had a CT head which showed no aneurysm. She had a stress test which showed no evidence of blockage. She is encouraged to follow up with her PCP about her pain control and fibromyalgia. Discharge orders & Medications Prescriptions: Continued Descovy 200-25 mg Tablet 1 tab PO DAILY 0RF Tivicay 50 mg Tablet 50 mg PO DAILY 0RF aspirin 81 mg Tablet,Chewable 81 mg PO DAILY 0RF Medication counseling provided by Pharmacist: Yes Diet/Activity/Treatments Diet: Regular Visit Report/Discharge Packet Instructions: DI for Chest Pain Discharge Data Attending Provider: Demetria Sanchez Quality VTE Deep Vein Thrombosis/Pulmonary Embolism Present on Admission: No
--- NOTE | 2021-12-21 14:46 | CM.DANOTE ---
DCP/Assessment: Reviewed chart. Patient is a 46yr old female admitted to [facility] with chest pain. Patient currently undergoing cardiac w/u. If testing negative it is suspected that patient will d/c home today. RN reports patient currently has no d/c planning needs. P: Home [facility] Discharge Planning/Care Management CM Discharge Assessment Start: 12/21/21 14:37 Freq: Status: Active Protocol: Document 12/21/21 14:37 KJS (Rec: 12/21/21 14:46 KJS [id number]) Discharge Planning Assessment Assigned Ward Supervisor TILA Wright Contact Information Simone Clarke (father ) # [phone] Advance Directives? No History Provided By Medical Record Prior Living Arrangements House Household Members family Type of transporation used prior to Drives own vehicle admit Independent with ADL's Yes: per nursing Is patient alert and oriented? Yes: per nursing Barriers to Discharge No Discharge Plan Home Transportation Arrangement Family to provide transport? Referrals Initiated None needed Review Status In Process Next Review Type Continued Stay Review
--- NOTE | 2021-12-21 18:24 | PC.NURSE ---
Pt has been cleared for discharge home. Pt drove herself here and is alert and oriented and not on any narcotics and states she feels good and safe to drive home. IV and Tele removed. Went over d/c instructions with Pt-discussed d/c meds, time of last dose, reviewed stroke education, encouraged fluid intake to prevent constipation or dehydration and to follow up as needed with her PCP. Pt denies further questions and was taken out via w/c by LIDAR SCIENTIST to pov with all belongings.
--- NOTE | 2021-12-22 05:21 | DI.NM.S_ITS ---
DATE OF SERVICE: PROCEDURE: Exercise perfusion study. DATE OF STUDY: December 21, 2021 INDICATIONS: Shortness of breath, left arm pain, history of smoking. RADIOPHARMACEUTICAL: 25.7 millicurie technetium-99m Myoview IV was injected at stress and 12.1 millicurie technetium-99m Myoview IV was injected at rest. This was one day protocol. CARDIAC STRESS: The patient underwent exercise stress test under the supervision of an attending staff. She walked on Felipe protocol for 6 minutes and 30 seconds, achieved 98 percent of target heart rate. Baseline blood pressure 120/88 and peak blood pressure 160/100 mmHg. Baseline rhythm was sinus with partial right bundle branch block. During stress, no convincing ischemic changes or significant arrhythmias seen other than rare PVCs. The patient developed chest discomfort after lying down in recovery, which got resolved when sitting up. [place] dyspnea as well. RAW DATA: Breast shadow seen. GATED STUDY: Resting LV ejection fraction 71 and stress LV ejection 75 percent without any obvious wall motion abnormalities. Resting end-diastolic volume 72 mL. TID ratio 1.0, which is within normal limits. Lung/heart ratio 0.35, which is within normal limits. MYOCARDIAL PERFUSION SCAN: Stress supine and resting supine images revealed small size, mildly decreased perfusion of anterior wall which got completely resolved during prone images suggestive of breast tissue attenuation artifact. CONCLUSION: 1. I will call this study a normal myocardial perfusion study with evidence of breast tissue attenuation artifact which got resolved during stress prone images. 2. Enhanced chronotropic response. 3. Mildly hypertensive blood pressure response. 4. Diminished exercise tolerance and FELIZ positive 21 percent. The patient achieved 7 METs of workload. Atypical chest discomfort and shortness of breath during exercise. Preserved left ventricular function. Overall as far as perfusion scan is concerned, this is a low-risk myocardial perfusion scan. Discussed the findings with the hospitalist team. Rosangela Jonas - MELVIN/diana/ad doc#: [id number]/job#: [id number] dd: 12/21/2021 17:54:00 dt: 12/22/2021 04:59:00 DICTATING MD/COPIES TO: Sury Plata MD COPIES MNE: JORGE LUIS;
== END 2021-12-21 18:28 | disposition home or self-care (01) ==
LOC: ED 22:13 → AC 22:27
PROVIDERS: Admitting Provider Nurse Practitioner Family; Emergency Provider Emergency Medicine; Visit Provider Nurse Practitioner Family
DX: R07.9 Chest pain, unspecified (principal); R51.9 Headache, unspecified; R20.0 Anesthesia of skin; R06.00 Dyspnea, unspecified; I10 Essential (primary) hypertension; B20 Human immunodeficiency virus [HIV] disease; N17.9 Acute kidney failure, unspecified; E86.0 Dehydration; G89.29 Other chronic pain; F17.210 Nicotine dependence, cigarettes, uncomplicated; Z20.822 Contact with and (suspected) exposure to COVID-19
CPT/HCPCS: 36415; 70496; 70498; 71045; 71275; 78452; 80048; 80053; 80061; 80305; 82550; 83036; 83690; 83735; 84443; 84484; 85025; 87635; 93005; 93017; 93306; 94760; 96361; 96372; 96374; 96375; 99284; C9803; G0378; A9502; J1200; J1650; J2785; J2930; Q9967